=== PATIENT | female | born 1940 | race African-American/Black ===

== ENCOUNTER 2016-11-07 10:35 | Outpatient (RCR) | payer MEDICARE, MEDICAID ==
[~2016-11-07 10:35] MED LIST: ASPIRIN81 MG ORAL; DILTIAZEM HCL120 MG PO; LOSARTAN POTASS50 MG ORAL; METFORMIN HCL500 M1 ORAL; PRAVACHOL20 MG ORAL; PRAVASTATIN SOD20 M1 ORAL; PT TO BRING LIST; SERTRALINE HCL25 MG ORAL; VESICARE5 MG ORAL
== END 2016-12-04 | disposition home or self-care (01) ==
LOC: PTY 10:35
DX: M75.111 Incomplete rotator cuff tear or rupture of right shoulder, not specified as traumatic (principal)
CPT/HCPCS: 97110; 97140; 97162; G0283; G8978; G8979

== ENCOUNTER 2016-12-05 09:53 | Outpatient (RCR) | payer MEDICARE, MEDICAID | END 2017-01-01 | disposition home or self-care (01) | LOC: PTY 09:53 | DX: M75.111 Incomplete rotator cuff tear or rupture of right shoulder, not specified as traumatic (principal) | CPT/HCPCS: 97110; 97140; G0283; G8978; G8979 ==

== ENCOUNTER 2017-02-07 09:00 | Outpatient (RCR) | payer MEDICARE, MEDICAID | END 2017-03-03 | disposition home or self-care (01) | LOC: PTY 09:00 | DX: M75.111 Incomplete rotator cuff tear or rupture of right shoulder, not specified as traumatic (principal) | CPT/HCPCS: 97035; 97110; 97140; 97164; G0283; G8978; G8979 ==

== ENCOUNTER 2017-03-05 08:40 | Outpatient (RCR) | payer MEDICARE, MEDICAID | END 2017-04-03 | disposition home or self-care (01) | LOC: PTY 08:40 | DX: M75.111 Incomplete rotator cuff tear or rupture of right shoulder, not specified as traumatic (principal) | CPT/HCPCS: 97032; 97110; 97116; G8978; G8979 ==